=== PATIENT | female | born 1985 | race African-American/Black ===

== ENCOUNTER → 2022-10-21 11:01 | Outpatient (CLI) | payer BC, SELFPAY ==
--- NOTE | ~2022-10-21 | US_ITS ---
EXAMINATION: US OB transvaginal INDICATION: INCONCLUSIVE VIABILITY TECHNIQUE: Sonography of the pelvis was performed by transabdominal and transvaginal techniques. COMPARISON: None. RESULT: Uterus: Orientation: Anteverted. 9.4 x 6.8 x 7.9 cm. Myometrium: homogeneous echogenicity. Intrauter ine gestational sac: Single present. Mean Sac Diameter: Not measured. Yolk sac: 0.54 cm. Embryo: Possible single pole present. [place] rump length: 0.48 cm, corresponding gestational age 6 week s, 1 days. Gestational heart rate: absent. Subgestational hematoma: Absent. Right ovary: 3.8 x 2.7 x 5.0 cm. Normal sonographic appearance.. Left ovary: Not visualized. Pelvis free fluid: None. IMPRESSION: Intrauterine of uncertain viability. A candidate pole is identified, with no he art motion detected at this time. Estimated Gestational Age: 6 weeks, 1 days by candidate crown rump length. ZULEIMA by ultrasound 06/15/19 24. Reviewed, dictated and finalized at location K. IMPRESSION: Intrauterine of uncertain viability. A candidate pole is identi fied, with no heart motion detected at this time. Estimated Gestational Age: 6 weeks, 1 days by candidate crown rump length. ZULEIMA by ultrasound 06/15/2023.
== END ==
PROVIDERS: PCP Advanced Practice Midwife; Visit Provider Advanced Practice Midwife
DX: O36.80X0 Pregnancy with inconclusive fetal viability, not applicable or unspecified (principal)
CPT/HCPCS: 76817

== ENCOUNTER 2022-10-24 13:44 | Outpatient (RCR) | payer BC, SELFPAY | END 2023-01-20 23:59 | disposition home or self-care (01) | LOC: ANHLAB 13:44 | PROVIDERS: PCP Advanced Practice Midwife; Visit Provider Advanced Practice Midwife | DX: O36.80X0 Pregnancy with inconclusive fetal viability, not applicable or unspecified (principal); Z3A.00 Weeks of gestation of pregnancy not specified | CPT/HCPCS: 36415; 84702 ==

== ENCOUNTER → 2022-10-28 13:29 | Outpatient (CLI) | payer BC, SELFPAY ==
--- NOTE | ~2022-10-28 | US_ITS ---
EXAMINATION: US OB transvaginal DATE: 10/28/2022 14:04 INDICATION: First trimester viability assessment TECHNIQUE: Real-time pelvic transabdominal and transvaginal ultrasound was performed. COMPARISON: 10/21/2022 FINDINGS: The uterus measures 8.4 x 6.4 x 7.7 cm. There is an intrauterine gestational sac. A yolk sa c is identified. No cardiac activity is identified.. There is a questionable pole measuri ng 5 mm. Mean sac diameter is 18 mm. The left ovary is not visualized however no left adnexal abnormality is seen. The right ovary measure s 3.5 x 2.9 x 3.0 cm. There is normal vascular flow in the right ovary. There is no free fluid in the pelvis. IMPRESSION: 1. Ultrasound findings suspicious for but not diagnostic of, failure. Continued follow-up i s recommended Reviewed, dictated and finalized at location F. IMPRESSION: 1. Ultrasound findings suspicious for but not diagnostic of, failure. Continued follow-up is recommended
== END ==
PROVIDERS: PCP Obstetrics & Gynecology Gynecology; Visit Provider Obstetrics & Gynecology Gynecology
DX: O36.80X0 Pregnancy with inconclusive fetal viability, not applicable or unspecified (principal); Z3A.00 Weeks of gestation of pregnancy not specified
CPT/HCPCS: 76817

== ENCOUNTER → 2023-03-09 12:15 | Outpatient (CLI) | payer BC, OTHER, SELFPAY ==
--- NOTE | ~2023-03-09 | US_ITS ---
Pelvic ultrasound. Clinical History: Pelvic pain Technique: Realtime transabdominal and transvaginal scanning of the pelvis was performed. Color flow Doppler and Doppler spectral analysis were performed. Findings: The uterus is anteverted, and measures 7.4 x 4.2 x 5.4 cm. The endometrial stripe has a th ickness of 6 mm. No focal mass is identified. The right ovary measures 2.9 x 1.7 x 1.5 cm. No significant right ovarian or adnexal mass is seen. The left ovary measures 3.8 x 2.0 x 2.7 cm. No significant left ovarian or adnexal mass is seen. There is small amount of free fluid in the cul de sac. Impression: Small amount of free fluid, otherwise unremarkable exam. Reviewed, dictated and finalized at location . Impression: Small amount of free fluid, otherwise unremarkable exam.
== END ==
PROVIDERS: PCP Obstetrics & Gynecology Gynecology; Visit Provider Obstetrics & Gynecology Gynecology
DX: R10.2 Pelvic and perineal pain (principal)
CPT/HCPCS: 76830

== ENCOUNTER 2023-08-23 16:01 | Outpatient (CLI) | payer OTHER, BC, SELFPAY ==
--- NOTE | ~2023-08-23 | US_ITS ---
EXAMINATION: US transvaginal DATE: 08/23/2023 16:25 INDICATION: Abnormal uterine bleeding TECHNIQUE: Multiple transabdominal and endovaginal sonographic images of the pelvis were obtained. COMPARISON: 03/09/2023 FINDINGS: Uterus: 6.7 x 4.3 x 5.0 cm. Endometrial complex measures 3.1 mm. Right Ovary: 3.0 x 1.3 x 2.2 cm. Vascular flow is present. No adnexal mass. Left Ovary: 3.3 x 1.2 x 2.6 cm. Vascular flow is present. No adnexal mass. There is physiologic range free fluid in the pelvis. IMPRESSION: Normal pelvic sonogram findings. Reviewed, dictated and finalized at location K.
== END 2023-08-23 16:02 ==
LOC: MICIMG 16:02
PROVIDERS: PCP Advanced Practice Midwife; Visit Provider Advanced Practice Midwife
DX: N93.8 Other specified abnormal uterine and vaginal bleeding (principal)
CPT/HCPCS: 76830

== ENCOUNTER 2023-09-01 16:19 | Outpatient (RCR) | payer OTHER, BC, SELFPAY | END 2023-11-28 23:59 | disposition home or self-care (01) | LOC: ANHLAB 16:19 | PROVIDERS: PCP Advanced Practice Midwife; Visit Provider Obstetrics & Gynecology Gynecology | DX: O09.01 Supervision of pregnancy with history of infertility, first trimester (principal); Z3A.00 Weeks of gestation of pregnancy not specified | CPT/HCPCS: 36415; 84702; 86850; 86900; 86901 ==

== ENCOUNTER 2023-09-16 15:27 | Outpatient (CLI) | payer OTHER, BC, SELFPAY ==
--- NOTE | ~2023-09-16 | US_ITS ---
EXAMINATION: US OB transvaginal DATE: 09/16/2023 15:51 INDICATION: Spotting. First trimester. TECHNIQUE: Real-time transvaginal pelvic ultrasound was performed. COMPARISON: Ultrasound 08/23/2023 FINDINGS: The uterus measures 8.0 x 6.4 x 6.1 cm. There is an intrauterine gestational sac. A yolk sac is ident ified. The crown rump length measures 6 mm, which correlates with an estimated gestational age of 6 weeks and 3 day(s) (+/-) 4 day(s). heart motion is identified measuring 124 beats per min havasupai (bpm) by M-mode Doppler. There is a small subchorionic hematoma. The right ovary measures 2.0 x 3 .2 x 1.8 cm. The left ovary measures 2.1 x 3.2 x 1.7 cm. There is physiologic free fluid in the pelvi s. IMPRESSION: 1. Single living intrauterine gestation with estimated date of delivery of 05/08/2024. 2. Small subchorionic hematoma. Reviewed, dictated and finalized at location E. IMPRESSION: 1. Single living intrauterine gestation with estimated date of delivery of . 2. Small subchorionic hematoma.
== END 2023-09-16 15:28 ==
LOC: MICIMG 15:28
PROVIDERS: PCP Obstetrics & Gynecology Gynecology; Visit Provider Obstetrics & Gynecology Gynecology
DX: O26.851 Spotting complicating pregnancy, first trimester (principal)
CPT/HCPCS: 76817

== ENCOUNTER 2023-10-21 11:27 | Outpatient (CLI) | payer OTHER, BC, SELFPAY ==
--- NOTE | ~2023-10-21 | US_ITS ---
EXAMINATION: US OB <= 14 weeks fetus INDICATION: subchronic hematoma 1st trimester TECHNIQUE: Sonography of the pelvis was performed by transabdominal and transvaginal techniques. COMPARISON: 09/16/2023. RESULT: Uterus: 13.2 x 8.4 x 9.3 cm. Anteverted. Homogenous myometrium. Intrauterine gestational sac: Single present. A small yolk sac is visualized. Embryo: Single present. [place] rump length: 5.5 cm, corresponding gestational age 12 weeks, 0 days. Gestational heart rate: present 157 bpm. Subgestational hematoma: Absent . Right ovary: Not visualized. No adnexal mass. Left ovary: Not visualized. No adnexal mass. Pelvis free fluid: None. IMPRESSION: Single, live intrauterine gestation. Estimated Gestational Age: 12 weeks, 0 days by crown rump length. ZULEIMA by ultrasound 05/04/2024. No subchorionic hematoma visualized in today's examination. Reviewed, dictated and finalized at location K. IMPRESSION: Single, live intrauterine gestation. Estimated Gestational Age: 12 weeks, 0 days by crown rump length. ZULEIMA by ultra sound 05/04/2024. No subchorionic hematoma visualized in today's examination.
== END 2023-10-21 11:28 ==
LOC: MICIMG 11:28
PROVIDERS: PCP Obstetrics & Gynecology Gynecology; Visit Provider Obstetrics & Gynecology Gynecology
DX: O36.8910 Maternal care for other specified fetal problems, first trimester, not applicable or unspecified (principal); Z3A.00 Weeks of gestation of pregnancy not specified
CPT/HCPCS: 76801

== ENCOUNTER 2024-01-19 16:26 | Outpatient (RCR) | payer OTHER, BC, SELFPAY ==
[2024-01-19 17:40] VITALS: BP 105/62; PULSE 68
--- NOTE | 2024-04-13 15:05 | P.PNAN_ITS ---
Anes - Eval Pre Procedure Date/Time: 04/13/24 15:05 Pre Op Diagnosis: NST Patient Data Age: 38 Gender: F Height: Weight: Last Vital Signs Pulse 68 01/19/24 17:40 BP 105/62 01/19/24 17:40 Allergies Allergy/AdvReac Type Severity Reaction Status Date / Time No Known Allergies Allergy Verified 01/19/24 17:58 Home Medications Medication Instructions Recorded Confirmed Type Vitamin 1 tab-cap PO 04/13/24 History Patient hx anesthesia problems: none Family hx anesthesia problems: none Results Review: All pre-operative results and documents have been reviewed as part of the pre- operative evaluation. [facility] Past Medical History Medical History (Updated 04/13/24 @ 15:06 by Hermila Pearl CRNA) Bulging disc Family History Family History Mother Hypertension Father Family history of diabetes mellitus in first degree relative Social History Social History Smoking status: Never smoker Alcohol intake: never Spiritual care concerns: No Exam Day of Procedure 04/13/24 15:05 Neurological: alert and oriented and other (patient has lumbar disc disease. ) Risks: patient came for pre-op evaluation for a labor epidural. reviewed the MRI and discussed with patient. Told patient to bring MRI with her to appt for UNIT TECHNICIAN/CARIN to review MRI at time for labor epidural. Per MRI there is no metal or fusions. She does have some disc bulging present. Informed DML of patient MRI and results and OK for epidural.
== END 2024-04-18 23:59 | disposition home or self-care (01) ==
LOC: ANHOBOP 16:26
PROVIDERS: Visit Provider Advanced Practice Midwife
DX: O36.8120 Decreased fetal movements, second trimester, not applicable or unspecified (principal); Z3A.24 24 weeks gestation of pregnancy
CPT/HCPCS: 59025

== ENCOUNTER 2024-05-01 06:15 | Inpatient (IN) | payer OTHER, BC, SELFPAY ==
[2024-05-01] VITALS (103 sets, daily range): BP systolic 101–235; BP diastolic 61–196; PULSE 49–115; RESP 18; TEMP 36.2–37.3; O2SAT 90–100; BMI 30.8
--- NOTE | 2024-05-01 06:41 | LDADM ---
This patient, Shweta Garces, was admitted to Labor/Delivery/Recovery 104 on 05/01/24 at 06:15. Plans for labor, pain management and were discussed with patient. Patient/family oriented to hospital policies and general routines including ID bracelet, bed and alarms, visiting hours, pain management, procedures, bathroom and other care routines, personal items, smoking policy, room service/diet and guest tray routines, security routines, and visiting hours. Patient/Family are encouraged to report perceived risks to care and to ask questions if they do not understand what they are told or what they should do. See OBIX for further documentation.
[2024-05-01 06:56] LABS: Basophils Percent Auto 0.5 % (0.2-1.2); Eosinophils Absolute Auto 0.1 K/mm3 (0-0.3); Eosinophils Percent Auto 1.9 % (0-4.4); Hematocrit 34.3 % (37.0-47.0); Hemoglobin 11.4 g/dL (12.0-15.0); Immature Granulocyte Absolute 0.06 K/mm3 (0.00-0.031); Immature Granulocyte Percent A 0.8 % (0-0.5); Lymphocytes Absolute Auto 1.49 K/mm3 (0.9-3.2); Lymphocytes Percent Auto 20.3 % (18.3-44.2); Mean Corpuscular HGB Conc 33.2 g/dl (32-36); Mean Corpuscular Volume 81.1 fl (80-100); Mean Platelet Volume 10.6 fl (7.4-10.4); Monocytes Absolute Auto 0.6 K/mm3 (0.1-0.6); Monocytes Percent Auto 8.2 % (2.6-8.5); Neutrophils Percent Auto 68.3 % (45.5-73.1); Platelet Count Result 207 k/mm3 (150-375); Red Blood Count 4.23 M/mm3 (4.2-5.4); Red Cell Distribution Width 16.1 % (11.5-14.5); White Blood Count 7.3 K/mm3 (4.5-10.0)
[2024-05-01] MEDS: OXYTOCIN 30 UNITS/NS 500 ML 30 UNITS/500 ML BAG IV CONT (07:28)
[2024-05-01] MEDS: LACTATED RINGERS 1,000 ML 125 ML IV CONT (07:28)
--- NOTE | 2024-05-01 07:29 | WPDOBADMIT ---
Obstetrics - Admit Note Admission Note: record reviewed. No pertinent additions to the history and/or any subsequent changes in the physical findings that are not consistent with the expected course of the were found. Additions to the history and/or subsequent changes in the physical findings follow. None.
--- NOTE | 2024-05-01 07:30 | P.HP_ITS ---
H&P: HPI History of Present Illness Date/Time: 05/01/24 07:30 Chief Complaint: 38 y.o. at 39 weeks, IOL Review of Systems Review of Systems: All systems reviewed & are unremarkable except as noted in HPI and below [facility] Past Medical History Medical History (Updated 05/01/24 @ 07:36 by Geno Nuñez CNM) Bulging disc Family History Family History Mother Hypertension Father Family history of diabetes mellitus in first degree relative Social History Social History Smoking status: Never smoker Alcohol intake: never Do You Feel Safe in your Home?: Yes Lack of Transportation: No Lack of Food: Never True Current Housing: I Have Housing Concerned About Future Housing: No Difficulty Paying Gas/Electric Bills: No Difficulty Paying for Meds: No Currently Unemployed: No Education: Master's Degree or Higher Difficulty w/ Childcare or Family Care: No Spiritual care concerns: No Meds Home Medications and Allergies Home Medications Medication Instructions Recorded Confirmed Type Vitamin 1 tab-cap PO 04/13/24 History Allergies Allergy/AdvReac Type Severity Reaction Status Date / Time No Known Allergies Allergy Verified 01/19/24 17:58 Vital Signs Vital Signs - 24 hr 05/01/24 06:39 05/01/24 07:00 Pulse Rate 77 Blood Pressure 115/70 Oxygen Delivery Room Air Exam Const: General: comfortable and no acute distress Eyes: General: appearance normal, both eyes and all related structures Neck: Neck: supple Resp: Effort & Inspection: normal respiratory effort Cardio: Rate: regular rate GI: Other: gravid : General: Yes bladder normal to palpation External Female Exam: normal external appearance Skin: General skin exam: normal color and no rashes or lesions noted Neuro: General: gait normal Speech: normal speech Sensory Exam: normal sensation Extrem: General: normal to inspection and edema Other: 1+ BLE edema Psych: Mental Status: mental status grossly normal Affect: normal affect H&P: Results Labs Labs: Short CBC 05/01/24 Range/Units 06:46 WBC 7.3 (4.5-10.0) K/mm3 Hgb 11.4 L (12.0-15.0) g/dL Hct 34.3 L (37.0-47.0) % Plt Count 207 (150-375) k/mm3 Assessment and Plan Assessment and plan (1) Encounter for induction of labor: Code(s): Z34.90 - Encounter for supervision of normal , unspecified, unspecified trimester Status: Acute (2) Advanced maternal age (AMA) in : Status: Acute (3) Alpha thalassemia silent carrier: Code(s): D56.3 - Thalassemia minor Status: Acute (4) Anemia affecting : Code(s): O99.019 - Anemia complicating , unspecified trimester Status: Acute (5) Arthritis of back: Code(s): M47.9 - Spondylosis, unspecified Status: Acute (6) Other abnormal clinical finding: Code(s): R68.89 - Other general symptoms and signs Status: Acute Plan Pt undergoing IOL. Dr. Hopkins updated.
[2024-05-01 07:46] LABS: HIV 1/2 Ab P24 Ag Result Negative (Negative)
--- NOTE | 2024-05-01 07:50 | PM.OBPNLAB ---
Pain Control Date/time seen: 05/01/24 07:50 Pain control: tolerating well Comments: feeling occasional contractions. No other complaints. Pelvic Exam Dilation (cm): 3 Effacement (%): 75 station: -2 Amniotic membrane status: Intact Comments: head well applied to cervix. Contractions Monitor mode: External Contraction pattern: Irregular Contraction intensity: Mild Status Comments: FHTs with moderate variability. Baseline 135. +accelerations. Assessment and Plan Pitocin rate (mU/min): 2 Assessment: induction ongoing Comments: CNM to bedside. Discussed plan of care and option for amniotomy and IUPC. Discussed risks, benefits, and expectations of breaking water. Discussed rational for IUPC. Patient is agreeable. Amniotomy performed and there was a scant return of clear amniotic fluid. IUPC inserted partially and returned with abbie blood. This was immediately removed. A new IUPC was placed and returned with clear amniotic fluid. Patient tolerated procedure well. Plan to increase pitocin as needed to achieve adequate contraction pattern. Dr. Hopkins updated.
[2024-05-01 08:06] LABS: Rapid Plasma Reagin Non-Reactive (NonReactive)
--- NOTE | 2024-05-01 08:56 | P.PNAN_ITS ---
Anes - Eval Pre Procedure Procedure: labor epidural Date/Time: 05/01/24 08:56 Preop Diagnosis: labor pain Pre Op Diagnosis: IOL Patient Data Age: 38 Gender: F Height: 1.73 m Weight: 92 kg Last Vital Signs Pulse 75 05/01/24 08:30 BP 119/79 05/01/24 08:30 O2 Del Method Room Air 05/01/24 06:39 Allergies Allergy/AdvReac Type Severity Reaction Status Date / Time No Known Allergies Allergy Verified 01/19/24 17:58 Home Medications Medication Instructions Recorded Confirmed Type Vitamin 1 tab-cap PO DAILY 04/13/24 05/01/24 History Laboratory Tests 05/01/24 06:46 WBC 7.3 K/mm3 (4.5-10.0) RBC 4.23 M/mm3 (4.2-5.4) Hgb 11.4 L g/dL (12.0-15.0) Hct 34.3 L % (37.0-47.0) MCV 81.1 fl (80-100) MCH 27.0 pg (26-34) MCHC 33.2 g/dl (32-36) RDW 16.1 H % (11.5-14.5) Plt Count 207 k/mm3 (150-375) MPV 10.6 H fl (7.4-10.4) Immature Gran % (Auto) 0.8 H % (0-0.5) Neut % (Auto) 68.3 % (45.5-73.1) Lymph % (Auto) 20.3 % (18.3-44.2) [place] % (Auto) 8.2 % (2.6-8.5) Eos % (Auto) 1.9 % (0-4.4) Baso % (Auto) 0.5 % (0.2-1.2) Lymph # (Auto) 1.49 K/mm3 (0.9-3.2) [place] # (Auto) 0.6 K/mm3 (0.1-0.6) Eos # (Auto) 0.1 K/mm3 (0-0.3) Baso # (Auto) 0.0 K/mm3 (0.0-0.1) Abs Immat Gran (auto) 0.06 H K/mm3 (0.00-0.031) Absolute Neuts (auto) 5.0 K/mm3 (1.3-6.7) Absolute Nucleated RBC 0.000 K/mm3 (0.0-0.012) Nucleated RBC % 0.0 % (0.0-0.2) RPR Non-reactive (NonReactive) HIV 1&2 Ab/P24 Ag 4thGn Negative (Negative) Blood Type O Positive Antibody Screen Negative Patient hx anesthesia problems: none Family hx anesthesia problems: none Results Review: All pre-operative results and documents have been reviewed as part of the pre- operative evaluation. [facility] Past Medical History Medical History (Updated 05/01/24 @ 08:57 by Hermila Pearl CRNA) Bulging disc Degenerative disc disease Family History Family History Mother Hypertension Father Family history of diabetes mellitus in first degree relative Social History Social History Smoking status: Never smoker Alcohol intake: never Do You Feel Safe in your Home?: Yes Lack of Transportation: No Lack of Food: Never True Current Housing: I Have Housing Concerned About Future Housing: No Difficulty Paying Gas/Electric Bills: No Difficulty Paying for Meds: No Currently Unemployed: No Education: Master's Degree or Higher Difficulty w/ Childcare or Family Care: No Spiritual care concerns: No Exam Day of Procedure 05/01/24 08:56 Patient weight: obese Heart: regular rate and rhythm Lungs: clear to auscultation and normal air movement Airway: Mallampati scale class II Neurological: alert and oriented
--- NOTE | 2024-05-01 14:17 | PM.OBPRVD ---
OB - Vaginal Delivery Note Procedure Delivery date: 05/01/24 Induction method: AROM and Per Pitocin Protocol Delivery monitor: External FHT and Internal Uterine Route of delivery: Episiotomy description: None Laceration Description: None Specimen: Yes (placenta) Quantitative Blood Loss (ml): 80 Anesthesia type: Epidural Disposition: Floor Complications: No immediate complications Narrative: Shweta presented for induction of labor at term. She made rapid change to complete dilation. She pushed very well with contractions and brought the head to a complete crown. With the next contraction, she delivered the remainder of the head. There was excellent restitution observed and smooth delivery of both the anterior and posterior shoulders followed by the remainder of the infant. The infant was placed in the mid internal abdomen and dried and stimulated by nursery staff. After 1 minute of life, the cord was doubly clamped and cut. Cord gases, cord blood, and cord segment were obtained. The placenta delivered spontaneously a few minutes later and was noted to have an extra lobe. It was inspected and found to be otherwise intact. There was excellent uterine tone and hemostasis. All the instrument counts correct. Mother and baby skin to skin in the delivery room. Baby Date of : 05/01/24 Time of : 13:55 Gestational Age by Date: 39 Infant gender: Male Weight (pounds): 0 (not available at the time of note) presentation: vertex position: Left Occiput Anterior Placenta delivery description: Spontaneous and Abnormal Configuration (extra lobe) Cord Vessel Description: 3 Vessels and Delayed Cord Clamping score one minute: 8 score five minutes: 9
--- NOTE | 2024-05-01 14:22 | P.DS_ITS ---
DS: Admitting Diagnosis Discharge Date 05/02/24 Admitting Diagnosis 38 y.o. at 39 weeks. IOL Anemia Alpha Thalasemia carrier AMA Fetus with right posterior brain mass (aprox 15 mm) DS: Discharge Diagnosis Discharge Diagnosis (1) (normal spontaneous vaginal delivery): Code(s): O80 - Encounter for full-term uncomplicated delivery Status: Acute (2) Patient is a currently breast-feeding mother: Code(s): Z39.1 - Encounter for care and examination of lactating mother Status: Acute OB - DS: Summary Hospital Course Hospital Course: Uncomplicated OB Procedures : Ultrasound OB Procedures Intrapartum: Spontaneous Vag Delivery OB Procedures: : None Peripartum Data Infant Delivery Method: Natural Vaginal Laceration Description: None Episiotomy description: None complications: none Status at Discharge Functional status at discharge: independent ambulation Overall status at discharge: patient is progressing back to baseline Time Spent with Patient Time attestation: Total time spent providing and/or coordinating discharge services: Exam Narrative: Alert and oriented. Mood is pleasant and cooperative. Perineum with minimal edema. Fundus firm and below umbilicus. Const: General: cooperative, healthy appearing, no acute distress and alert Orientation/consciousness: patient oriented x3 Limitations: no limitations Resp: Effort & Inspection: normal respiratory effort and able to speak in complete sentences Cardio: Rate: regular rate GI: Inspection: normal to inspection GI Palp: Yes Soft to palpation : General: Yes bladder normal to palpation External Female Exam: other (lochia WNL) Bimanual exam- vagina & uterus: bladder normal to palpation Other: Fundus firm and below U Skin: General skin exam: normal color and no rashes or lesions noted Neuro: General: patient oriented x3 and moves all extremities Cognition (Neuro): normal cognition Speech: normal speech Sensory Exam: normal sensation Extrem: General: normal to inspection and no calf tenderness Psych: Appearance: grossly normal Mental Status: mental status grossly normal Affect: normal affect Thought process: Normal thought process present DS: Data Data Completed and Pending Labs on day of discharge: Labs from last 24 hours 05/01/24 06:46 WBC 7.3 RBC 4.23 Hgb 11.4 L Hct 34.3 L MCV 81.1 MCH 27.0 MCHC 33.2 RDW 16.1 H Plt Count 207 MPV 10.6 H Immature Gran % (Auto) 0.8 H Neut % (Auto) 68.3 Lymph % (Auto) 20.3 [place] % (Auto) 8.2 Eos % (Auto) 1.9 Baso % (Auto) 0.5 Lymph # (Auto) 1.49 [place] # (Auto) 0.6 Eos # (Auto) 0.1 Baso # (Auto) 0.0 Abs Immat Gran (auto) 0.06 H Absolute Neuts (auto) 5.0 Absolute Nucleated RBC 0.000 Nucleated RBC % 0.0 RPR Non-reactive HIV 1&2 Ab/P24 Ag 4thGn Negative Blood Type O Positive Antibody Screen Negative Discharge Plan Discharge Attending physician on discharge: Estrella Ramos Consulting providers: Jeramie Hopkins Discharging Clinician: Geno Nuñez Patient Disposition: Home, Self-Care Activity: may shower and pelvic rest Diet: as tolerated and regular Discharge Instructions: Continue taking your vitamin and any other supplements as previously directed (Examples: Iron, Vitamin D). You may take Tylenol 1000mg over the counter every 6 hours as needed for pain. Do not exceed 4000mg of Tylenol daily. You may continue using tucks pads and dermoplast spray if needed for a few more days. Depression * Notify provider for signs or symptoms. These may include- * Feelings: Feeling anxious, angry, hopeless, guilt, or loss of interest/pleasure in activities you normally enjoy. Mood swings or panic attacks. * General: Extreme fatigue, loss of your appetite, feeling restless. Crying excessively, irritability, insomnia * Psychological: Lack of concentration, depression or fear, unwanted thoughts * Weight: Significant gain or loss * Safety: Thoughts of harming yourself or your baby. Patient Instructions: Antibiotic Form Patient Language: [place] Stand Alone Forms: General Discharge Information Follow-up/Referrals: Geno Nuñez, CNM [Certified Nurse Educational Manager] - (6 weeks ) Discharge Medications: New ibuprofen 600 mg tablet 600 mg PO Q6H PRN (Reason: pain) Qty: 30 0RF Continued Vitamin 1 tab-cap PO DAILY Date of admission: 05/01/24 06:15 Primary Care Provider: PHYSICIAN NOT ON STAFF,NONSTAFF Admitting Provider: Estrella Ramos Attending physician on admission: Estrella Ramos Condition: Stable
[2024-05-01] MEDS: OXYTOCIN 30 UNITS/NS 500 ML 30 UNITS/500 ML BAG 125 UNITS IV CONT (14:23)
[2024-05-01] MEDS: IBUPROFEN 600 MG TABLET PO (19:15)
[2024-05-02 00:14] VITALS: BP 118/76; PULSE 71; RESP 18; TEMP 36.6; O2SAT 98
[2024-05-02 07:41] LABS: Hematocrit 35.4 % (37.0-47.0); Hemoglobin 11.5 g/dL (12.0-15.0)
--- NOTE | 2024-05-02 08:03 | P.PNOB_ITS ---
OB - PN: Subj Subjective Date/time seen: 05/02/24 0740 Interval history: Post Day 1 from [facility]. Doing well. Urinating without difficulty. Denies passing any large clots. Denies dizziness with ambulating. Tolerating po food and fluids. Bonding with infant. Patient comments: no complaints and pain well controlled [place] baby status: bottle feeding well feeding status: pumping and bottle feeding OB - PN: Obj Data Labs 05/02/24 03:07 Labs: Laboratory Results - last 24 hr 05/01/24 05/02/24 06:46 03:07 Hgb 11.5 L Hct 35.4 L RPR Non-reactive OB - PN A/P Assessment and Plan (1) [facility] (normal spontaneous vaginal delivery): Code(s): O80 - Encounter for full-term uncomplicated delivery Status: Acute (2) Patient is a currently breast-feeding mother: Code(s): Z39.1 - Encounter for care and examination of lactating mother Status: Acute Plan day: 1 Plan: discharge home Time Spent With Patient Time: Total time spent is greater than 50% in coordination of care (as documented) at patient's floor/unit and/or counseling patient: Review of Systems 2 Review of Systems: All systems reviewed & are unremarkable except as noted in HPI and below Exam 2 Narrative: Alert and oriented. Mood is pleasant and cooperative. Perineum with minimal edema. Fundus firm and below umbilicus. Const: General: cooperative, healthy appearing, no acute distress and alert Orientation/consciousness: patient oriented x3 Limitations: no limitations Resp: Effort & Inspection: normal respiratory effort and able to speak in complete sentences Cardio: Rate: regular rate GI: Inspection: normal to inspection GI Palp: Yes Soft to palpation : General: Yes bladder normal to palpation External Female Exam: other (lochia WNL) Bimanual exam- vagina & uterus: bladder normal to palpation O ther: Fundus firm and below U Skin: General skin exam: normal color and no rashes or lesions noted Neuro: General: patient oriented x3 and moves all extremities Cognition (Neuro): normal cognition Speech: normal speech Sensory Exam: normal sensation Extrem: General: normal to inspection and no calf tenderness Psych: Appearance: grossly normal Mental Status: mental status grossly normal Affect: normal affect Thought process: Normal thought process present
[2024-05-02 08:45] VITALS: BP 124/79; PULSE 86; RESP 18; TEMP 36.4; O2SAT 100
[2024-05-02] MEDS: IBUPROFEN 600 MG TABLET PO (09:24)
[2024-05-02] MEDS: DOCUSATE SODIUM 100 MG CAPSULE PO (09:24)
[2024-05-02] MEDS: MULTIVIT/MIN/PREN/FOL AC/IRON TABLET 1 TAB PO (09:24)
--- NOTE | 2024-05-02 10:33 | OBPPTRN ---
Patient transferred to post room #292 via (wheelchair). Support person present. Oriented to unit, room, information board, rooming in, admission packet and security measures. Patient verbalizes understanding.
--- NOTE | 2024-05-02 11:00 | PC.NURSE ---
Met with patient to assess and discuss needs related to feeding. Mother states it is her intention to [pump and bottle feed]. Encouraged mother to pump consistently (approximately every 2-3 hours) for about 15 minutes to stimulate a good milk supply. She exclusively pumped with her last baby. She has a mom cozy pump and we reviewed that she may need a plug in electric pump to help establish her supply. Mother educated on milk production, supply and demand, and expectations for pumping in the immediate period. Mother instructed to call for assistance if infant will not feed every 3 hours, if there is discomfort with pumping, or if mother has any other questions or concerns. resources provided including the Mom and Baby Guide, admission folder and name/number on communication board. Mother verbalized understanding. Updated patient?s primary RN with education provided.?
[2024-05-02 12:07] VITALS: BP 112/73; PULSE 67; RESP 16; TEMP 36.6; O2SAT 99
--- NOTE | 2024-05-02 14:16 | WPDANLDPN2 ---
Anes-Prog Note L&D Date/Time: 05/02/24 14:16 Comfortable throughout: section Neuraxial method: spinal Epidural/Spinal procedure site: clean & non-tender Neuro status: Neuro function grossly intact. Cardiovascular status: normal Respiratory status: normal Airway patency: baseline Mental status: baseline Post-Op hydration status: normal Vital Signs: Last Vital Signs Temp 98 F 05/02/24 12:07 Pulse 67 05/02/24 12:07 Resp 16 05/02/24 12:07 BP 112/73 05/02/24 12:07 Pulse Ox 99 05/02/24 12:07 O2 Del Method Room Air 05/02/24 12:01 Pain score (VAS): 0/10 I/O: Intake & Output 05/01/24 05/02/24 05/02/24 23:59 07:59 15:59 Output Total 100 Balance -100 Post-procedural complaints: none Patient feedback: Patient satisfied with anesthetic care.
== END 2024-05-02 17:15 | disposition home or self-care (01) | DRG 807 ==
LOC: ANHLDR 14:25 → ANHOB2 17:54
PROVIDERS: Admitting Provider Obstetrics & Gynecology Gynecology; Referring Provider Advanced Practice Midwife; Visit Provider Obstetrics & Gynecology Gynecology
DX: O99.02 Anemia complicating childbirth (principal); Z37.0 Single live birth; Z3A.39 39 weeks gestation of pregnancy; O43.893 Other placental disorders, third trimester; O62.3 Precipitate labor; D64.9 Anemia, unspecified; D56.3 Thalassemia minor; O99.892 Other specified diseases and conditions complicating childbirth; M47.9 Spondylosis, unspecified
CPT/HCPCS: 36415; 85014; 85018; 85025; 86592; 86703; 86850; 86900; 86901; 88307; A9270; G0432; J2590; J2795; J7120